=== PATIENT | female | born 1970 | race African-American/Black ===

== ENCOUNTER 2023-06-30 07:15 | Emergency (ER) | payer SELFPAY ==
[~2023-06-30] VITALS: Ht 167.6 cm; Wt 81.0 kg
[2023-06-30 07:25] VITALS: O2SAT 100
[2023-06-30 09:11] VITALS: TEMP 98.4
[2023-06-30 09:15] VITALS: BP 120/68; PULSE 81; RESP 20
[2023-06-30] MEDS ORDERED: KETOROLAC 60MG/2ML VIAL IM ONE (09:15)
[2023-06-30] MEDS ORDERED: ACETAMINOPHEN 325MG TABLET PO ONE (09:15)
[2023-06-30] MEDS ORDERED: IBUP-1525 MT (10:31)
[2023-06-30] MEDS ORDERED: TRAM50TA3 MT (10:31)
[2023-06-30] MEDS ORDERED: ACET-2708 MT (10:39)
== END 2023-06-30 11:38 | disposition home or self-care (01) ==
LOC: ER 07:15
DX: M25.512 Pain in left shoulder (principal); J45.909 Unspecified asthma, uncomplicated; E11.9 Type 2 diabetes mellitus without complications; I10 Essential (primary) hypertension; Z98.890 Other specified postprocedural states
CPT/HCPCS: 99283; 81025; 73030; 96372; J1885